=== PATIENT | male | born 1950 | race Hispanic/Latino ===

== ENCOUNTER 2017-09-03 06:49 | Day surgery (SDC) | payer MEDICARE, BC ==
[2017-08-22 11:21] VITALS: BMI 28.8
[2017-09-03] MEDS ORDERED: Propofol 10 mg/ml Inj (20 ML) ONE (08:13)
[2017-09-03] MEDS ORDERED: Sodium Chloride 0.9% 1,000 ML IV SCH (09:00)
[2017-09-03 09:31] VITALS: BP 126/72; PULSE 66; RESP 16; TEMP 97.7; O2SAT 100
== END 2017-09-03 09:53 | disposition home or self-care (01) ==
LOC: ENDO 06:49
PROVIDERS: ATTEND Specialist
DX: Z12.11 Encounter for screening for malignant neoplasm of colon (principal); K63.5 Polyp of colon; K57.30 Diverticulosis of large intestine without perforation or abscess without bleeding; K64.8 Other hemorrhoids; K21.9 Gastro-esophageal reflux disease without esophagitis; I10 Essential (primary) hypertension; E11.9 Type 2 diabetes mellitus without complications; Z79.84 Long term (current) use of oral hypoglycemic drugs

== ENCOUNTER 2018-08-19 06:38 | Day surgery (SDC) | payer MEDICARE, BC ==
[2017-08-22 11:21] VITALS: BMI 28.8
[2018-08-19 07:14] VITALS: RESP 16
[2018-08-19] MEDS ORDERED: Propofol 10 mg/ml Inj (20 ML) ONE (07:57)
[2018-08-19] MEDS ORDERED: Lidocaine 1% Inj (20ml) ONE (07:58)
[2018-08-19] MEDS ORDERED: Sodium Chloride 0.9% 1,000 ML IV SCH (08:30)
[2018-08-19 09:39] VITALS: BP 135/75; PULSE 66; TEMP 98; O2SAT 100
== END 2018-08-19 09:35 | disposition home or self-care (01) ==
LOC: ENDO 06:38
PROVIDERS: ATTEND Specialist
DX: K22.70 Barrett's esophagus without dysplasia (principal); K29.80 Duodenitis without bleeding; K44.9 Diaphragmatic hernia without obstruction or gangrene; K31.9 Disease of stomach and duodenum, unspecified; D64.9 Anemia, unspecified; E11.9 Type 2 diabetes mellitus without complications; I10 Essential (primary) hypertension